=== PATIENT | male | born 1945 | race African-American/Black ===

== ENCOUNTER 2022-06-28 04:39 | Emergency (ER) | payer OTHER ==
[~2022-06-28] VITALS: Ht 175.3 cm; Wt 86.2 kg
--- NOTE | 2022-06-28 05:01 | NUR ---
TO ER BED 10. BIBS C/O MID EPIGASTRIC "BURNING" SINCE 3PM. 1 ANTACID AND 1 NITRO. PT IS ALERT AND ORIENTED. RR EVEN AND NON LABORED. CONNECTED TO MONITOR.
--- NOTE | 2022-06-28 05:29 | NUR ---
XRAY AT BEDSIDE
[2022-06-28 05:42] LABS: BASOPHILS % (AUTO) 0.2 % (0.0-2.0); EOSINOPHILS % (AUTO) 1.5 % (0.0-6.0); HEMATOCRIT 43 % (39-51); HEMOGLOBIN 14.3 g/dL (13.5-17.5); LYMPHOCYTES # (AUTO) 0.9 K/uL (0.8-4.8); LYMPHOCYTES % (AUTO) 28.6 % (20.0-44.0); MEAN CORPUSCULAR HGB CONC 33 g/dl (31.0-36.0); MEAN CORPUSCULAR VOLUME 93 fL (80-96); MONOCYTES # (AUTO) 0.4 K/uL (0.1-1.30); MONOCYTES % (AUTO) 12.8 % (2.0-12.0); NEUTROPHILS # (AUTO) 1.9 K/uL (1.8-8.9); NEUTROPHILS % (AUTO) 56.9 % (43.0-81.0); PLATELET COUNT (AUTO) 121 K/uL (150-450); RED BLOOD CELL COUNT(AUTO) 4.61 MIL/uL (4.5-6.0); WHITE BLOOD COUNT (AUTO) 3.3 K/uL (4.3-11.0)
[2022-06-28 06:01] LABS: ALANINE AMINOTRANSFERASE 26 U/L (12-78); ALBUMIN 3.4 g/dL (3.4-5.0); ALKALINE PHOSPHATASE 90 U/L (46-116); ASPARTATE AMINOTRANSFERASE 28 U/L (15-37); BILIRUBIN,DIRECT 0.2 mg/dL (0.0-0.2); BILIRUBIN,TOTAL 0.5 mg/dL (0.2-1.0); CALCIUM, SERUM 8.7 mg/dL (8.5-10.1); CARBON DIOXIDE 30 mmol/L (21-32); CHLORIDE 105 mmol/L (98-107); CREATININE 1.1 mg/dL (0.6-1.3); GLUCOSE 140 mg/dL (74-106); SODIUM SERUM 138 mmol/L (136-145); TOTAL PROTEIN, SERUM 7.3 g/dL (6.4-8.2); UREA NITROGEN, BLOOD 18 mg/dL (7-18)
[2022-06-28] MEDS ORDERED: ASPIRIN EC 325 MG TABLET.DR PO ONE (06:49)
--- NOTE | 2022-06-28 06:57 | NUR ---
COVID SWAB COLLECTED
[2022-06-28] MEDS ORDERED: ASPIRIN 81 MG TAB.CHEW PO ONE (07:00)
--- NOTE | 2022-06-28 07:07 | NUR ---
PT REFUSED SECOND TROP AWARE
--- NOTE | 2022-06-28 07:15 | NUR ---
RECEIVED PT FROM GEE RN PT AWAKE AND ALERT RESPIRATION SPONT AND EASY dineses chest pain
--- NOTE | 2022-06-28 07:30 | NUR ---
PT REFUSED TO BE ADMITED INPT REQUSED TO FALLOW UP WITH HIS CARDIOGEST TODAY
--- NOTE | 2022-06-28 07:45 | NUR ---
IV removed. Catheter intact and site benign. Pressure and 4x4 applied to site. No bleeding noted.
--- NOTE | 2022-06-28 07:50 | NUR ---
Patient does not wish to proceed with medical care recommended by Dr. Jonathan HELMS). Patient given information related to possible complications, up to and including , which could occur as a result of leaving the hospital at this time. Patient verbalizes understanding of risks involved due to leaving against medical advice. Patient has signed AMA form.
[2022-06-28 08:05] VITALS: BP 133/50
[2022-06-28 16:15] LABS: EOSINOPHILS % (MANUAL) 2 % (0-4); LYMPHOCYTES % (MANUAL) 32 % (16-48); MONOCYTES % (MANUAL) 6 % (0-11.0); NEUTROPHILS % (MANUAL) 60 (42-76)
== END 2022-06-28 08:06 | disposition left against medical advice (07) ==
LOC: ER 04:41
DX: I21.4 Non-ST elevation (NSTEMI) myocardial infarction (principal); R07.9 Chest pain, unspecified; Z20.822 Contact with and (suspected) exposure to COVID-19
CPT/HCPCS: 99291; 87426; 93005; 71045; 85025; 80048; 80076; 36415; 84484; 85730; 85007; C9803